=== PATIENT | female | born 1925 | race Caucasian/White ===

== ENCOUNTER 2016-04-06 | Outpatient (CLI) | payer MEDICARE, OTHER | END 2016-04-06 19:32 | disposition EMS.NT ==

== ENCOUNTER 2016-04-15 12:34 | Outpatient (CLI) | payer MEDICARE, OTHER | END 2016-04-15 12:35 | disposition home or self-care (01) | DX: L89.609 Pressure ulcer of unspecified heel, unspecified stage (principal) ==